=== PATIENT | female | born 1935 | race Caucasian/White ===

== ENCOUNTER 2016-09-04 13:32 | Emergency (ER) | payer MEDICARE, OTHER ==
--- NOTE | 2016-09-04 13:58 | ED Physician Chart ---
Chief Complaint/HPI - Patient Information Date Seen:: 09/04/16 Time Seen:: 13:46 Chief Complaint:: L knee pain for one day. History of Present Illness:: Brought in by private auto by her son Clay because of L knee pain since yesterday after she tripped over another resident's walker in her [facility] home and fell. Pt had no LOC. Pt got back up and ambulated immediately. No other injury or bodily pain. Allergies:: Allergies Allergy/AdvReac Type Severity Reaction Status Date / Time No Known Allergies Allergy Verified 09/04/16 13:42 Vitals:: Vital Signs - 8 hr 09/04/16 13:43 Temp 98.7 F HR 88 RR 17 BP 113/63 O2 Sat % 97 Historian:: Patient Family MD/PCP:: Dr. Meadows LMP:: Postmenopausal. 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, Other (No vaginal bleeding.) Musculoskeletal: No back pain, Other (L knee pain.) Endocrine: No polyuria, No polydipsia Psychiatric: Prior psych history, No depression, No suicidal ideation, No homicidal ideation, No auditory hallucination, No visual hallucination Hematopoietic: No bruising, No lymphadenopathy Allergic/Immuno: No urticaria, No angioedema Neurological: No syncope, No focal symptoms, No weakness, No paresthesia, No headache, No seizure, No dizziness Past Medical History - Past Medical History Past Medical History: Dementia Family History: None Social History: Non Smoker, No Alcohol, No Drug Use, , Care Facility Employment:: Retired. Surgical History: other (L shoulder surgery 8 y/a. Abdominal surgery 27 y/a.) Psychiatricy History: Depression, Dementia Medication: Reviewed Family Medical History - Family Member Mother History Unknown: Yes Ethnicity: Living Status: Physical Exam - Physical Examination General/Constitutional: Awake, Well-developed, well-nourished, Alert, No distress, Non-toxic appearing Other Gen/Cons comments:: Breathes comfortably, speaks clearly, and interacts normally. Head: Atraumatic Eyes: Lids, conjuctiva normal, PERRL, EOMI ENMT: External ears, nose nl, Nasal exam nl, Oropharynx nl Neck: Nontender, Full ROM w/o pain, No JVD, No nuchal rigidity, No mass, No stridor Respiratory: Nl effort/Exclusion Cardio Vascular: RRR, No murmur, gallop, rubs GI: No tenderness/rebounding/guarding, No organomegaly, No hernia, Normal BS's, Nondistended, No mass/bruits, No McBurney tenderness Other GI comments:: Well healed surgical scars noticed at midline in upper abdomen above the umbilicus and in RUQ : No CVA tenderness Other Extremities comments:: LLE: L knee shows moderate swelling in anterior aspect. No gross deformity, erythema, open wound or crepitus. Slight decrease in ROM due to pain and swelling. Negative Drawer's sign. Stable MCL and LCL. No detectable motor/ sensory/vascular deficit. Good distal pulse. L hip is nontender with no abnormality detected. Neuro/Psych: Alert/oriented (oriented x 3), Mood normal, No focal deficits Labs/Radiology/EKG Results - Radiology Results Results: L knee X-ray (3 v.): Based on my interpretation, degenerative changes noticed. No acute fracture or dislocation. Official report is pending. ED Septic Shock - . Is Septic Shock (SBP<90, OR Lactate>4 mmol\L) present?: No - <6hrs of presentation: Vital Signs: Vital Signs - 8 hr 09/04/16 13:43 Temp 98.7 F HR 88 RR 17 BP 113/63 O2 Sat % 97 Reassessment (Disposition) - Reassessment Reassessment:: 1520 Pt feels much better without significant L knee pain. L knee X-ray just became available. Radiological findings have been reviewed with pt. Crutches and L knee immobilizer were offered but pt declined because she prefers to use her wheelchair at the [facility] home. Pt and her son request to leave now. Aftercare instructions have been given. 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 - Aftercare/Follow up Instructions Aftercare/Follow-Up Instructions:: Refer to Discharge Instructions Notes:: Wear mario wrap to L knee as directed. Avoid weight bearing on L knee for now. May take Tylenol 500 mg tab one tab po q6h prn pain. Bruise care instructions have been given. F/U with PCP Dr. Meadows in one day for recheck. Return to ER immediately if condition worsens or if any further questions/problems. Medication Prescribed:: None - Patient Disposition Discharge/Transfer:: Home Time:: 15:25 Condition at Disposition:: Stable, Improved
--- NOTE | 2016-09-04 14:09 | ED Physician Chart ---
Chief Complaint/HPI - Patient Information Date Seen:: 09/04/16 Time Seen:: 13:45 Allergies:: Allergies Allergy/AdvReac Type Severity Reaction Status Date / Time No Known Allergies Allergy Verified 09/04/16 13:42 Family Medical History - Family Member Mother History Unknown: Yes Ethnicity: Living Status:
--- NOTE | 2016-09-05 13:21 | Diagnostic Imaging Report ---
Left knee (3 views) HISTORY: Pain There is severe lateral joint space narrowing. Hypertrophic bone formation noted about the lateral femoral condyle. Chondrocalcinosis is seen. Narrowing and mild hypertrophic changes noted about the patellofemoral joint region. Suprapatellar density may be associated with an effusion. IMPRESSION: 1. Severe lateral joint space narrowing associated with degenerative joint disease 2. Chondrocalcinosis. This is most likely related to degenerative change. Pseudogout cannot be excluded.
== END 2016-09-04 15:52 ==
LOC: ER 13:32
DX: S80.02XA Contusion of left knee, initial encounter (principal); W19.XXXA Unspecified fall, initial encounter; Y93.89 Activity, other specified; Y92.89 Other specified places as the place of occurrence of the external cause; Y99.8 Other external cause status
CPT/HCPCS: 99284; 96372; 73564; J1885; 73562-TC-LT; Z7502